=== PATIENT | male | born 1970 | race Caucasian/White ===

== ENCOUNTER 2022-05-06 11:15 | Outpatient (CLI) | payer OTHER ==
--- NOTE | 2022-05-06 14:41 | XRAY Report ---
PROCEDURE: Shoulder 2 View LT INDICATIONS: L SHLDR PX TECHNIQUE: 2 views of the shoulder were acquired. COMPARISON: None. FINDINGS: Bones: No fractures or dislocations. No suspicious bony lesions. Visualized ribs appear intact. Soft tissues: No suspicious soft tissue calcifications. IMPRESSION: No evidence acute bony abnormality of the left shoulder. If clinical suspicion and/or symptoms persist, further assessment with repeat plain films or advanced imaging (e.g., CT, MRI, or bone scan) may be helpful for further assessment. Reviewed by: Hayden العراقي MD on 05/06/2022 2:39 PM PST Approved by: Hayden العراقي MD on 05/06/2022 2:39 PM PST Station ID: [id number]
== END 2022-05-06 11:16 | disposition home or self-care (01) ==
LOC: DI 11:15
PROVIDERS: ATTEND Student in an Organized Health Care Education/Training Program
DX: M25.512 Pain in left shoulder (principal)